=== PATIENT | female | born 1955 | race African-American/Black ===

== ENCOUNTER 2016-08-14 09:18 | Emergency (ER) | payer MEDICARE ==
--- NOTE | 2016-08-14 10:20 | ERRECORD ---
[facility] EMERGENCY RECORD HPI HYPERTENSION (10:08 LHOD) CHIEF COMPLAINT: Patient presents for evaluation of high blood pressure. HISTORIAN: History provided by patient. TIME COURSE: APPROX. 0900, PT CHECKED HER BP. 180/150, ALTHOUGH SHE TOLD RN IT WAS UP TO 200. PT TOOK HER BP MED THEN AND CAME TO HOSPITAL. SHE REPORTS SHE WAS CONCERNED SINCE SHE GETS TINGLING IN HER LEFT HAND. REPORTS SHE HAD CARDIAC WORK-UP APPROX. 2 MONTHS AGO AND TOLD TINGLING IN HAND FROM ARTHRITIS OR PINCHED NERVE. AT THAT TIME PT'S LISINOPRIL INCREASED TO 40 MG / DAY. NO SORIA OR CP. ASSOCIATED WITH: No associated abdominal pain, Associated with apprehension, No associated chest pain, No associated diarrhea, No associated flank pain, No associated headache, No associated malaise, No associated nausea, No associated neck pain, No associated palpitations, No associated profuse sweating, No associated steroid use, No associated tachycardia, No associated visual changes, No associated vomiting. EXACERBATED BY: Patient's condition exacerbated by nothing. RELIEVED BY: Patient's condition relieved by prescription medications, ANTI-HYPERTENSIVE MED DECREASED BP. ROS (10:10 LHOD) CONSTITUTIONAL: Historian denies fever, denies weakness. EYES: Negative eye review of systems. CARDIOVASCULAR: Historian denies chest pain, denies edema. RESPIRATORY: Historian denies cough, denies shortness of breath. GI: Historian denies abdominal pain, denies nausea, denies vomiting. MUSCULOSKELETAL: Historian denies back pain, OCCAS LEFT SHOULDER PAINS. SKIN: Historian denies rash. NEUROLOGIC: Historian denies focal weakness, denies headache, reports paresthesias. LEFT FINGER TINGLING. HEMO/LYMPHATIC: Historian denies easy bruising. PSYCHIATRIC: Historian reports anxiety. NOTES: All systems reviewed, negative except as described above. PAST MEDICAL HISTORY MEDICAL HISTORY: Flu vaccine up to date, Tetanus immunization up to date, Pneumococcal vaccine up to date, Past medical history includes gastrointestinal disease, gastroesophageal reflux disease, Past medical history includes history of hyperlipidemia, Past medical history includes history of hypertension, which has been treated, , Past medical history includes gastrointestinal disease, gastroesophageal reflux disease, Past medical history includes history of obesity, hypertension, which has been treated, malignancy, primary site breast, Date of last treatment: 2008. VERIFIED 09/25/14-EER.08-01-15. (09:34 SCHI) FEMALE SURGICAL HISTORY: , hysterectomy, Date of surgery 1979, mastectomy, of the left breast, orthopedic surgery, LEFT ANKLE. 08-01-15. (09:34 SCHI) &a-1R&a+25V*p+0X*[id number]*c202B*c15G*c2P*p-0X&a-25V&a+1R Name: Laly Beth V : 1955 F60 MedRec: [id number] AcctNum: [id number] Prepared: Sat Aug 14, 2016 10:18 by Interface Page 1 of 3 pMD [facility] EMERGENCY RECORD SOCIAL HISTORY: Patient denies alcohol use, Patient denies drug use, Patient has no smoking history, Patient drinks socially, rarely, Patient denies drug use, Patient has no smoking history, Lives at home, Patient denies alcohol use, Patient denies drug use, Patient has no smoking history, Lives at home, with family, Patient has pets, Social History includes Patient has no smoking history, Patient drinks socially, rarely, Patient denies drug use. (09:34 SCHI) FAMILY HISTORY: Family history includes malignancy, sibling, MOM'S AUNT. (09:34 SCHI) NOTES: Nursing records reviewed, HX OF BREAST CANCER FOR WHICH SHE GOES TO [facility], BUT NOT PRESENTLY RECEIVING CHEMO. (10:13 LHOD) KNOWN ALLERGIES adhesive tape: Reaction: Rash, Source: Patient, - PAPPER Levaquin Oral: Reaction: Hives, Source: Patient CURRENT MEDICATIONS (09:33 SCHI) hydrochlorothiazide: TABLET : Strength - 25 mg : ORAL Patient Dose: 1 tab(s) Oral once a day. lisinopril: TABLET : Strength - 10 mg : ORAL Patient Dose: 40 mg Oral once a day. pravastatin: TABLET : Strength - 20 mg : ORAL Patient Dose: 1 tab(s) once a day (at bedtime). meTOPROLOL tartrate: TABLET : Strength - 25 mg : ORAL Patient Dose: 1 tab(s) Oral 2 times a day. VITAL SIGNS VITAL SIGNS: BP: 175/73, Pulse: 76, Resp: 18, Temp: 98.6 (Tympanic), O2 sat: 95 on Room Air, Time: 08/14/2016 09:27. (09:27 SCHI) BP: 156/86, Time: 08/14/2016 09:57. (09:57 SCHI) PHYSICAL EXAM (10:12 LHOD) CONSTITUTIONAL: Vital signs reviewed, Patient afebrile, Pulse normal, Blood pressure, hypertensive, 156/86, Respiratory rate normal, Patient appears non toxic, Patient appears pain free, Patient alert and oriented to person, place and time, VERY PLEASANT, BUT ANXIOUS APPEARING. NECK: Neck exam included findings of normal range of motion, Trachea midline. RESPIRATORY CHEST: Respiratory exam included findings of no respiratory distress, Breath sounds clear. CARDIOVASCULAR: Cardiovascular exam included findings of heart rate regular rate and rhythm, Heart sounds with, &a-1R&a+25V*p+0X*c9563F*c202B*c15G*c2P*p-0X&a-25V&a+1R Name: Laly Beth V : 1955 F60 MedRec: [id number] AcctNum: [id number] Prepared: Sat Aug 14, 2016 10:18 by Interface Page 2 of 3 pMD [facility] EMERGENCY RECORD systolic murmur present, grade 2/6. ABDOMEN FEMALE: Abdominal exam included findings of abdomen nontender. BACK: Back exam normal. UPPER EXTREMITY: Upper extremity exam normal. LOWER EXTREMITY: Lower extremity exam normal. NEURO: Neuro exam findings include patient oriented to person, place and time, Speech normal, Gait normal, Memory normal, Cranial nerves intact, no focal motor deficits, no focal sensory deficits. SKIN: no rash. DOCTOR NOTES (10:14 LHOD) TEXT: REPEAT BP'S HERE SYSTOLIC UNDER 180. LAST 156/86 NO EVIDENCE OF CARDIOVASCULAR OR NEUROLOGIC COMPLICATIONS AT PRESENT. PROBLEM LIST No recorded problems DIAGNOSIS (09:49 LHOD) FINAL: PRIMARY: LABILE HYPERTENSION. PRESCRIPTION No recorded prescriptions DISPOSITION PATIENT: Disposition Type: Discharge, Disposition: *Discharge Home, Condition: Good. (09:49 LHOD) Patient left the department. (10:13 [facility] [place]: LHOD=MD Karen, Karina [facility]=SOMMER Powers, Davonte &a-1R&a+25V*p+0X*p3524H*c202B*c15G*c2P*p-0X&a-25V&a+1R Name: Laly Beth V : 1955 F60 MedRec: [id number] AcctNum: [id number] Prepared: Calixto Aug 14, 2016 10:18 by Interface Page 3 of 3 pMD MTDD
--- NOTE | 2016-08-14 10:26 | PICIS ---
[facility] EMERGENCY RECORD TRIAGE [facility] SCHI[facility] TRIAGE NOTES: BP ELEVATED. (Sat Aug 14, 2016 09:33 SCHI) PATIENT: NAME: Laly Beth V, AGE: 60, GENDER: female, : Tue1955, TIME OF GREET: Sat Aug 14, 2016 09:18, PREFERRED LANGUAGE: Tamazight, ETHNICITY: Not or , FALL RISK: NO, ECODE BILLING MAP: [facility], SSN: [id number], Zip Code: [id number], KG WEIGHT: [phone], PHONE: , , , PERSON ID: [id number], PCP: MD MARTINEZ IMELDA. (Sat Aug 14, 2016 09:33 SCHI) COMPLAINT: HIGH BP. ([facility] 09:[facility] SCHI) ADMISSION: URGENCY: 3 Urgent, ADMISSION SOURCE: Home, TRANSPORT: Walk-in, BED: ED -. (Sat Aug 14, 2016 09:33 SCHI) ASSESSMENT: Assessment: ALERT AND ORIENTED X 4, SKIN WARM AND DRY RESP EVEN AND UNLABORED,. (09:34 SCHI) PAIN: No complaint of pain, Location CHRONIC LEFT ARM PAIN. (09:34 SCHI) TRIAGE SCREENING: Patient denies suicidal ideation, Patient denies presence of domestic violence. (09:34 SCHI) PROVIDERS: TRIAGE NURSE: Davonte Powers RN. ([facility] 09:[facility] SCHI) VITAL SIGNS: BP 175/73, Pulse 76, Resp 18, Temp 98.6, (Tympanic), O2 Sat 95, on Room Air, Time 08/14/2016 09:27. (09:27 SCHI) PREVIOUS VISIT ALLERGIES: adhesive tape, Levaquin Oral. (Sat Aug 14, 2016 09:33 SCHI) adhesive tape, Levaquin Oral. (09:34 SCHI) KNOWN ALLERGIES adhesive tape: Reaction: Rash, Source: Patient, - PAPPER Levaquin Oral: Reaction: Hives, Source: Patient CURRENT MEDICATIONS (09:33 SCHI) hydrochlorothiazide: TABLET : Strength - 25 mg : ORAL Patient Dose: 1 tab(s) Oral once a day. lisinopril: TABLET : Strength - 10 mg : ORAL Patient Dose: 40 mg Oral once a day. pravastatin: TABLET : Strength - 20 mg : ORAL Patient Dose: 1 tab(s) once a day (at bedtime). meTOPROLOL tartrate: TABLET : Strength - 25 mg : ORAL Patient Dose: 1 tab(s) Oral 2 times a day. VITAL SIGNS VITAL SIGNS: BP: 175/73, Pulse: 76, Resp: 18, Temp: 98.6 (Tympanic), O2 sat: 95 on Room Air, Time: 08/14/2016 09:27. (09:27 SCHI) BP: 156/86, Time: 08/14/2016 09:57. (09:57 SCHI) &a-1R&a+25V*p+0X*f9391K*c202B*c15G*c2P*p-0X&a-25V&a+1R Name: Laly Beth V : 1955 F60 MedRec: [id number] AcctNum: [id number] Prepared: Sat Aug 14, 2016 10:24 by Interface Page 1 of 4 pMD [facility] EMERGENCY RECORD HPI HYPERTENSION (10:08 LHOD) CHIEF COMPLAINT: Patient presents for evaluation of high blood pressure. HISTORIAN: History provided by patient. TIME COURSE: APPROX. 0900, PT CHECKED HER BP. 180/150, ALTHOUGH SHE TOLD RN IT WAS UP TO 200. PT TOOK HER BP MED THEN AND CAME TO HOSPITAL. SHE REPORTS SHE WAS CONCERNED SINCE SHE GETS TINGLING IN HER LEFT HAND. REPORTS SHE HAD CARDIAC WORK-UP APPROX. 2 MONTHS AGO AND TOLD TINGLING IN HAND FROM ARTHRITIS OR PINCHED NERVE. AT THAT TIME PT'S LISINOPRIL INCREASED TO 40 MG / DAY. NO SORIA OR CP. ASSOCIATED WITH: No associated abdominal pain, Associated with apprehension, No associated chest pain, No associated diarrhea, No associated flank pain, No associated headache, No associated malaise, No associated nausea, No associated neck pain, No associated palpitations, No associated profuse sweating, No associated steroid use, No associated tachycardia, No associated visual changes, No associated vomiting. EXACERBATED BY: Patient's condition exacerbated by nothing. RELIEVED BY: Patient's condition relieved by prescription medications, ANTI-HYPERTENSIVE MED DECREASED BP. ROS (10:10 LHOD) CONSTITUTIONAL: Historian denies fever, denies weakness. EYES: Negative eye review of systems. CARDIOVASCULAR: Historian denies chest pain, denies edema. RESPIRATORY: Historian denies cough, denies shortness of breath. GI: Historian denies abdominal pain, denies nausea, denies vomiting. MUSCULOSKELETAL: Historian denies back pain, OCCAS LEFT SHOULDER PAINS. SKIN: Historian denies rash. NEUROLOGIC: Historian denies focal weakness, denies headache, reports paresthesias. LEFT FINGER TINGLING. HEMO/LYMPHATIC: Historian denies easy bruising. PSYCHIATRIC: Historian reports anxiety. NOTES: All systems reviewed, negative except as described above. PAST MEDICAL HISTORY MEDICAL HISTORY: Flu vaccine up to date, Tetanus immunization up to date, Pneumococcal vaccine up to date, Past medical history includes gastrointestinal disease, gastroesophageal reflux disease, Past medical history includes history of hyperlipidemia, Past medical history includes history of hypertension, which has been treated, , Past medical history includes gastrointestinal disease, gastroesophageal reflux disease, Past medical history includes history of obesity, hypertension, which has been treated, malignancy, primary site breast, Date of last treatment: 2008. VERIFIED 09/25/14-EER.08-01-15. (09:34 SCHI) FEMALE SURGICAL HISTORY: , hysterectomy, Date of surgery 1979, mastectomy, of the left breast, orthopedic surgery, LEFT ANKLE. &a-1R&a+25V*p+0X*m7730S*c202B*c15G*c2P*p-0X&a-25V&a+1R Name: Laly Beth V : 1955 F60 MedRec: [id number] AcctNum: [id number] Prepared: Calixto Aug 14, 2016 10:24 by Interface Page 2 of 4 pMD [facility] EMERGENCY RECORD 08-01-15. (09:34 SCHI) SOCIAL HISTORY: Patient denies alcohol use, Patient denies drug use, Patient has no smoking history, Patient drinks socially, rarely, Patient denies drug use, Patient has no smoking history, Lives at home, Patient denies alcohol use, Patient denies drug use, Patient has no smoking history, Lives at home, with family, Patient has pets, Social History includes Patient has no smoking history, Patient drinks socially, rarely, Patient denies drug use. (09:34 SCHI) FAMILY HISTORY: Family history includes malignancy, sibling, MOM'S AUNT. (09:34 SCHI) NOTES: Nursing records reviewed, HX OF BREAST CANCER FOR WHICH SHE GOES TO [facility], BUT NOT PRESENTLY RECEIVING CHEMO. (10:13 LHOD) PHYSICAL EXAM (10:12 LHOD) CONSTITUTIONAL: Vital signs reviewed, Patient afebrile, Pulse normal, Blood pressure, hypertensive, 156/86, Respiratory rate normal, Patient appears non toxic, Patient appears pain free, Patient alert and oriented to person, place and time, VERY PLEASANT, BUT ANXIOUS APPEARING. NECK: Neck exam included findings of normal range of motion, Trachea midline. RESPIRATORY CHEST: Respiratory exam included findings of no respiratory distress, Breath sounds clear. CARDIOVASCULAR: Cardiovascular exam included findings of heart rate regular rate and rhythm, Heart sounds with, systolic murmur present, grade 2/6. ABDOMEN FEMALE: Abdominal exam included findings of abdomen nontender. BACK: Back exam normal. UPPER EXTREMITY: Upper extremity exam normal. LOWER EXTREMITY: Lower extremity exam normal. NEURO: Neuro exam findings include patient oriented to person, place and time, Speech normal, Gait normal, Memory normal, Cranial nerves intact, no focal motor deficits, no focal sensory deficits. SKIN: no rash. EVENTS TRANSFER: Triage to Emergency Main ED -05. (09:33 SCHI) Removed from Emergency Main ED -05. (10:13 SCHI) DOCTOR NOTES (10:14 LHOD) TEXT: REPEAT BP'S HERE SYSTOLIC UNDER 180. LAST 156/86 NO EVIDENCE OF CARDIOVASCULAR OR NEUROLOGIC COMPLICATIONS AT PRESENT. PROBLEM LIST No recorded problems &a-1R&a+25V*p+0X*h1193A*c202B*c15G*c2P*p-0X&a-25V&a+1R Name: Laly Beth V : 1955 F60 MedRec: [id number] AcctNum: [id number] Prepared: Calixto Aug 14, 2016 10:24 by Interface Page 3 of 4 pMD [facility] EMERGENCY RECORD DIAGNOSIS (09:49 LHOD) FINAL: PRIMARY: LABILE HYPERTENSION. DISPOSITION PATIENT: Disposition Type: Discharge, Disposition: *Discharge Home, Condition: Good. (09:49 LHOD) Patient left the department. (10:13 SCHI) INSTRUCTION (09:50 LHOD) DISCHARGE: HYPERTENSION, ESTABLISHED. FOLLOWUP: MD JUAN, [facility], [facility], [address] [place] [id number], [phone], Follow up with Primary Care Physician in 7-10 days. SPECIAL: CONTINUE YOUR PRESENT MEDICATION. FOLLOW UP WITH THE DOCTOR WHO TREATS YOUR BLOOD PRESSURE IN THE NEXT 1-2 WEEKS. *RETURN IF WORSE Follow-up with your PCP. PRESCRIPTION No recorded prescriptions ADMIN (10:15 LHOD) DIGITAL SIGNATURE: MD Jones Lefayne. [place]: LHOD=MD Jones Lefayne SCHI=SOMMER Powers, Slinda &a-1R&a+25V*p+0X*e0174G*c202B*c15G*c2P*p-0X&a-25V&a+1R Name: Laly Beth V : 1955 F60 MedRec: [id number] AcctNum: [id number] Prepared: Calixto Aug 14, 2016 10:24 by Interface Page 4 of 4 pMD MTDD
== END 2016-08-14 10:12 | disposition home or self-care (01) ==
LOC: MADERS 09:18
DX: I10 Essential (primary) hypertension (principal); K21.9 Gastro-esophageal reflux disease without esophagitis; R78.5 Finding of other psychotropic drug in blood; Z79.899 Other long term (current) drug therapy
CPT/HCPCS: 99283

== ENCOUNTER 2016-08-17 08:03 | Outpatient (CLI) | payer MEDICARE ==
[2016-08-17 08:51] LABS: ALT (SGPT) 17 U/L (0-55); AST (SGOT) 16 U/L (5-34); Albumin 3.7 g/dL (3.4-4.8); Alkaline Phosphatase 75 U/L (40-150); Anion Gap 15 mmol/L (10-20); BUN (Urea Nitrogen) 11 mg/dL (9.8-20.1); Bilirubin, Total 0.5 mg/dL (0.2-1.2); Calc. Creatinine Clearance 0 mL/min (70-130); Calcium 9.2 mg/dL (7.8-10.44); Carbon Dioxide 27 mmol/L (23-31); Chloride 102 mmol/L (98-107); Estimated GFR-MDRD Greater than 90; Globulin 3.7 g/dL (2.4-3.5); Glucose 100 mg/dL (80-115); Potassium 4.4 mmol/L (3.5-5.1); Protein, Total 7.4 g/dL (5.8-8.1); Sodium 140 mmol/L (136-145)
[2016-08-17 09:08] LABS: Free T4 (Free Thyroxine) 0.92 ng/dL (0.70-1.48); Thyroid Stimulating Hormone 2.3254 uIU/mL (0.35-4.94)
[2016-08-17 09:25] LABS: Anisocytosis SLIGHT = 6-15 cells (100X) (0-5/hpf); Elliptocytes SLIGHT = 2-5 cells (100X) (0-1/hpf); Eosinophils 4 % (0-10); Hemoglobin 11.7 g/dL (12.0-16.0); Hypochromia SLIGHT = 6-15 cells (100X) (0-5/hpf); Lymphocytes 28 % (21-51); MDiff Complete? YES; Mean Corpuscular HGB CONC 31.2 g/dL (32.0-36.0); Mean Corpuscular Hemoglobin 22.4 pg (27.0-31.0); Mean Corpuscular Volume 71.7 fl (81.0-99.0); Mean Platelet Volume 12.1 fL (7.4-10.4); Microcytosis SLIGHT = 6-15 cells (100X) (0-5/hpf); Monocytes 5 % (0-10); Neutrophil 63 % (42-75); Platelet Count 217 thou/uL (130-400); Poikilocytosis SLIGHT = 6-15 cells (100X) (0-5/hpf); RBC Distribution Width 16.1 % (11.5-14.5); Red Blood Cell (RBC) Count 5.23 mill/uL (4.20-5.40); White Blood Cell (WBC) Count 8.7 thou/uL (4.8-10.8)
[2016-08-17 09:47] LABS: Hemoglobin A1c 6.3 % (4.0-6.0)
[2016-08-17 18:32] LABS: Iron 47 ug/dL (50-170)
[2016-08-17 18:39] LABS: Ferritin 39.32 ng/mL (10-291)
== END 2016-08-17 08:04 ==
LOC: MADLABBHPM 08:03
PROVIDERS: ATTEND Family Medicine
DX: E78.2 Mixed hyperlipidemia (principal); D50.9 Iron deficiency anemia, unspecified; I10 Essential (primary) hypertension
CPT/HCPCS: 36415; 80053; 82728; 83036; 83540; 84439; 84443; 85007; 85027

== ENCOUNTER 2016-10-21 07:57 | Outpatient (CLI) | payer MEDICARE ==
[2016-10-21 08:32] LABS: Hemoglobin A1c 6.4 % (4.0-6.0)
[2016-10-21 08:37] LABS: ALT (SGPT) 15 U/L (0-55); AST (SGOT) 14 U/L (5-34); Albumin 3.6 g/dL (3.4-4.8); Alkaline Phosphatase 69 U/L (40-150); Anion Gap 14 mmol/L (10-20); BUN (Urea Nitrogen) 10 mg/dL (9.8-20.1); Bilirubin, Total 0.3 mg/dL (0.2-1.2); Calc. Creatinine Clearance 0 mL/min (70-130); Calcium 9.2 mg/dL (7.8-10.44); Carbon Dioxide 28 mmol/L (23-31); Cardiac Risk 4.2 (Less than 4.5); Chloride 102 mmol/L (98-107); Cholesterol 171 mg/dL (< 200 Desired); Estimated GFR-MDRD 88; Globulin 3.5 g/dL (2.4-3.5); Glucose 105 mg/dL (80-115); HDL Cholesterol 41 mg/dL (>60 Neg Risk); LDL Cholesterol, Calculated 113 mg/dL; Protein, Total 7.1 g/dL (5.8-8.1); Sodium 140 mmol/L (136-145); Triglycerides 85 mg/dL (Less than 150)
[2016-10-21 09:50] LABS: #Basophils 0.2 thou/uL (0.0-0.2); #Eosinphils 0.4 thou/uL (0.0-0.7); #Lymphocytes 2.3 thou/uL (1.20-3.40); #Monocytes 0.6 thou/uL (0.11-0.59); #Neutrophils 4.3 thou/uL (1.40-6.50); %Basophils 2.1 % (0.0-1.0); %Eosinophils 4.5 % (0.0-10.0); %Monocytes 7.9 % (0.0-10.0); %Neutrophils 55.4 % (42.0-75.0); Hemoglobin 12.3 g/dL (12.0-16.0); Large Platelets SLIGHT; MDiff Complete? YES; Mean Corpuscular HGB CONC 30.9 g/dL (32.0-36.0); Mean Corpuscular Hemoglobin 22.4 pg (27.0-31.0); Mean Corpuscular Volume 72.6 fl (81.0-99.0); Mean Platelet Volume 13.8 fL (7.4-10.4); Microcytosis SLIGHT = 6-15 cells (100X) (0-5/hpf); PLT Morphology Comment Appears Adequate; Platelet Count 221 thou/uL (130-400); RBC Distribution Width 16.1 % (11.5-14.5); Red Blood Cell (RBC) Count 5.47 mill/uL (4.20-5.40); White Blood Cell (WBC) Count 7.8 thou/uL (4.8-10.8)
[2016-10-21 17:37] LABS: Iron 38 ug/dL (50-170)
== END 2016-10-21 07:58 ==
LOC: MADLABBHPM 07:57
PROVIDERS: ATTEND Family Medicine
DX: E78.5 Hyperlipidemia, unspecified (principal); D50.9 Iron deficiency anemia, unspecified; R73.03 Prediabetes
CPT/HCPCS: 36415; 80053; 80061; 82728; 83036; 83540; 85025

== ENCOUNTER 2016-10-27 10:51 | Emergency (ER) | payer MEDICARE | END 2016-10-27 11:23 | disposition home or self-care (01) | LOC: MADERS 10:51 | DX: H69.91 Unspecified Eustachian tube disorder, right ear (principal); I10 Essential (primary) hypertension; K21.9 Gastro-esophageal reflux disease without esophagitis; E78.5 Hyperlipidemia, unspecified; Z79.899 Other long term (current) drug therapy | CPT/HCPCS: 99283 ==

== ENCOUNTER 2017-02-10 17:39 | Outpatient (CLI) | payer MEDICARE | END 2017-02-10 17:40 | disposition home or self-care (01) | LOC: MADLAB 17:39 | PROVIDERS: ATTEND Family Medicine | DX: R39.9 Unspecified symptoms and signs involving the genitourinary system (principal) | CPT/HCPCS: 87086 ==

== ENCOUNTER 2017-02-27 04:31 | Emergency (ER) | payer MEDICARE | END 2017-02-27 05:48 | disposition home or self-care (01) | LOC: MADERS 04:31 | DX: J01.90 Acute sinusitis, unspecified (principal); E66.9 Obesity, unspecified; K21.9 Gastro-esophageal reflux disease without esophagitis; E78.5 Hyperlipidemia, unspecified; I10 Essential (primary) hypertension; Z79.899 Other long term (current) drug therapy | CPT/HCPCS: 99283 ==

== ENCOUNTER 2017-03-14 15:46 | Emergency (ER) | payer MEDICARE ==
[2017-03-14] MEDS ORDERED: Azithromycin 250 MG TAB ONE (17:55)
[2017-03-14] MEDS ORDERED: Naproxen 500 MG TAB ONE (17:55)
[2017-03-14] MEDS ORDERED: Cephalexin 500 MG CAP ONE (17:55)
== END 2017-03-14 18:05 | disposition home or self-care (01) ==
LOC: MADERS 15:46
DX: S80.862A Insect bite (nonvenomous), left lower leg, initial encounter (principal); L08.9 Local infection of the skin and subcutaneous tissue, unspecified; E78.5 Hyperlipidemia, unspecified; I10 Essential (primary) hypertension; K21.9 Gastro-esophageal reflux disease without esophagitis; E66.9 Obesity, unspecified; W57.XXXA Bitten or stung by nonvenomous insect and other nonvenomous arthropods, initial encounter
CPT/HCPCS: 99282

== ENCOUNTER 2017-03-30 09:43 | Outpatient (CLI) | payer MEDICARE ==
[2017-03-30 11:26] LABS: Hemoglobin A1c 6.4 % (4.0-6.0)
[2017-03-30 11:47] LABS: ALT (SGPT) 17 U/L (8-55); AST (SGOT) 14 U/L (5-34); Albumin 3.7 g/dL (3.4-4.8); Alkaline Phosphatase 71 U/L (40-150); Anion Gap 12 mmol/L (10-20); BUN (Urea Nitrogen) 9 mg/dL (9.8-20.1); Bilirubin, Total 0.6 mg/dL (0.2-1.2); Calc. Creatinine Clearance 0 mL/min (70-130); Calcium 9.4 mg/dL (7.8-10.44); Carbon Dioxide 29 mmol/L (23-31); Chloride 102 mmol/L (98-107); Estimated GFR-MDRD Greater than 90; Globulin 4.3 g/dL (2.4-3.5); Glucose 94 mg/dL (80-115); Potassium 3.8 mmol/L (3.5-5.1); Sodium 139 mmol/L (136-145)
[2017-03-30 12:51] LABS: #Basophils 0.1 thou/uL (0.0-0.2); #Eosinphils 0.3 thou/uL (0.0-0.7); #Lymphocytes 2.3 thou/uL (1.20-3.40); #Monocytes 0.6 thou/uL (0.11-0.59); #Neutrophils 5.5 thou/uL (1.40-6.50); %Basophils 1.1 % (0.0-1.0); %Eosinophils 3.4 % (0.0-10.0); %Lymphocytes 26.1 % (21.0-51.0); %Monocytes 6.9 % (0.0-10.0); %Neutrophils 62.7 % (42.0-75.0); Hemoglobin 11.9 g/dL (12.0-16.0); Mean Corpuscular HGB CONC 29.7 g/dL (32.0-36.0); Mean Corpuscular Hemoglobin 21.2 pg (27.0-31.0); Mean Corpuscular Volume 71.5 fl (81.0-99.0); Platelet Count 235 thou/uL (130-400); RBC Distribution Width 17.7 % (11.5-14.5); Red Blood Cell (RBC) Count 5.58 mill/uL (4.20-5.40); White Blood Cell (WBC) Count 8.7 thou/uL (4.8-10.8)
[2017-03-30 13:15] LABS: Giant Platelets SLIGHT; Large Platelets SLIGHT; Manual Diff?? NO; Microcytosis SLIGHT = 6-15 cells (100X) (0-5/hpf); PLT Morphology Comment Appears Adequate
== END 2017-03-30 09:44 | disposition home or self-care (01) ==
LOC: MADLABBHPM 09:43
PROVIDERS: ATTEND Family Medicine
DX: E61.1 Iron deficiency (principal); R73.03 Prediabetes
CPT/HCPCS: 36415; 80053; 82728; 83036; 83540; 85025

== ENCOUNTER 2017-12-09 10:49 | Outpatient (CLI) | payer MEDICARE | END 2017-12-09 10:50 | disposition home or self-care (01) | LOC: MADLABBHPM 10:49 | PROVIDERS: ATTEND Family Medicine | DX: Z01.83 Encounter for blood typing (principal) | CPT/HCPCS: 36415; 86900; 86901 ==

== ENCOUNTER 2018-03-16 22:25 | Emergency (ER) | payer MEDICARE ==
[2018-03-16 22:47] LABS: Bilirubin Small (Negative); Blood, Urine Negative (Negative); Clarity Clear (Clear); Glucose, Urine (Dipstick) Negative (Negative); Leukocyte Negative (Negative); Nitrite Negative (Negative); Protein, Urine (Dipstick) 30 mg/dL (Neg-Trace); Specific Gravity, Urine 1.025 (1.005-1.030); pH, Urine 6.5 (5.0-9.0)
[2018-03-16] MEDS ORDERED: Ketorolac Tromethamine 30 MG/ML VIAL ONE (22:52)
[2018-03-16] MEDS ORDERED: Ondansetron HCl/PF 4 MG/2 ML Vial ONE (22:52)
[2018-03-16 22:53] LABS: Bacteria/HPF None Seen HPF (None Seen); RBC/HPF 0-3 HPF (0-3); Squamous Epithelial 0-3 HPF (0-3); WBC/HPF 0-3 HPF (0-3)
--- NOTE | 2018-03-16 23:14 | CT ---
CT ABDOMEN AND PELVIS NONCONTRAST: 03/16/18 HISTORY: Left flank pain. FINDINGS: Each renal collecting system, ureter, and the urinary bladder are decompressed without stone evident. Lack of contrast limited evaluation for other abnormalities. Calcified granulomata of the spleen are consistent with healed granulomatous disease. Postoperative changes of the rectum. Degenerative crandall es lumbar spine. IMPRESSION: No CT evidence of urinary tract obstruction or calcification. POS: [facility]
[2018-03-16 23:22] LABS: Hemoglobin 11.5 g/dL (12.0-16.0); Mean Corpuscular HGB CONC 30.3 g/dL (32.0-36.0); Mean Corpuscular Hemoglobin 20.7 pg (27.0-31.0); Mean Corpuscular Volume 68.6 fL (78.0-98.0); Platelet Count 200 thou/uL (130-400); RBC Distribution Width 17.7 % (11.5-14.5); Red Blood Cell (RBC) Count 5.54 mill/uL (4.20-5.40); White Blood Cell (WBC) Count 10.5 thou/uL (4.8-10.8)
[2018-03-16 23:23] LABS: #Lymphocytes 0.6 thou/uL (1.20-3.40); #Neutrophils 8.7 thou/uL (1.40-6.50); %Eosinophils 0.2 % (0.0-10.0); %Lymphocytes 5.7 % (21.0-51.0); %Monocytes 4.3 % (0.0-10.0); %Neutrophils 83.2 % (42.0-75.0); Mean Platelet Volume 12.7 fL (7.4-10.4)
[2018-03-16 23:24] LABS: #Basophils 0.7 thou/uL (0.0-0.2); #Monocytes 0.5 thou/uL (0.11-0.59); %Basophils 6.6 % (0.0-1.0); ALT (SGPT) 18 U/L (8-55); AST (SGOT) 17 U/L (5-34); Albumin 4.3 g/dL (3.4-4.8); Alkaline Phosphatase 86 U/L (40-150); Anion Gap 18 mmol/L (10-20); BUN (Urea Nitrogen) 10 mg/dL (9.8-20.1); Bilirubin, Total 0.5 mg/dL (0.2-1.2); Calc. Creatinine Clearance 0 mL/min (70-130); Calcium 9.8 mg/dL (7.8-10.44); Carbon Dioxide 25 mmol/L (23-31); Chloride 100 mmol/L (98-107); Estimated GFR-MDRD 80; Globulin 3.9 g/dL (2.4-3.5); Glucose 178 mg/dL (80-115); Lipase 10 U/L (8-78); Protein, Total 8.2 g/dL (6.0-8.3); Sodium 139 mmol/L (136-145)
[2018-03-16 23:32] LABS: MDiff Complete? YES; Manual Diff?? YES
[2018-03-16 23:33] LABS: Anisocytosis SLIGHT = 6-15 cells (100X) (0-5/hpf); Hypochromia SLIGHT = 6-15 cells (100X) (0-5/hpf); Large Platelets SLIGHT; Lymphocytes 14 % (21-51); Monocytes 1 % (0-10); Neutrophil 85 % (42-75); Poikilocytosis SLIGHT = 6-15 cells (100X) (0-5/hpf)
[2018-03-16 23:34] LABS: PLT Morphology Comment Appears Adequate; RBC Morphology Abnormal
[2018-03-16] MEDS ORDERED: Promethazine HCl 25 MG/ML VIAL ONE (23:52)
== END 2018-03-17 00:18 | disposition home or self-care (01) ==
LOC: MADERS 22:25
DX: R10.9 Unspecified abdominal pain (principal); R11.2 Nausea with vomiting, unspecified; K21.9 Gastro-esophageal reflux disease without esophagitis; E78.5 Hyperlipidemia, unspecified; I10 Essential (primary) hypertension; E66.9 Obesity, unspecified; Z79.899 Other long term (current) drug therapy
CPT/HCPCS: 74176; 81003; 81015; 83690; 87086; 96365; 96375; J1885; J2405; J2550

== ENCOUNTER 2018-09-28 10:54 | Emergency (ER) | payer MEDICARE ==
--- NOTE | 2018-09-28 12:23 | CT ---
CT BRAIN WITHOUT CONTRAST: Date: 09/28/18 HISTORY: Vertigo. Dizziness. FINDINGS: No evidence of acute infarct, hemorrhage, midline shift, or abnormal extra-axial fluid collections ar e seen. The ventricular size is normal and the basilar cisterns are patent. The bony calvarium is int act. The visualized paranasal sinuses and mastoid air cells are well aerated. IMPRESSION: No CT evidence of acute intracranial process. POS: [facility]
[2018-09-28 12:30] LABS: Prothrombin Time 13.7 SEC (12.0-14.7)
[2018-09-28] MEDS ORDERED: Meclizine HCl 25 MG TAB ONE (12:34)
[2018-09-28 12:41] LABS: ALT (SGPT) 16 U/L (8-55); AST (SGOT) 23 U/L (5-34); Albumin 4.1 g/dL (3.4-4.8); Alkaline Phosphatase 79 U/L (40-150); Anion Gap 18 mmol/L (10-20); BUN (Urea Nitrogen) 11 mg/dL (9.8-20.1); Bilirubin, Total 0.4 mg/dL (0.2-1.2); Calc. Creatinine Clearance 0 mL/min (70-130); Calcium 9.3 mg/dL (7.8-10.44); Carbon Dioxide 23 mmol/L (23-31); Chloride 105 mmol/L (98-107); Estimated GFR-MDRD Greater than 90; Globulin 4.1 g/dL (2.4-3.5); Glucose 88 mg/dL (80-115); Potassium 4.8 mmol/L (3.5-5.1); Protein, Total 8.2 g/dL (6.0-8.3); Sodium 141 mmol/L (136-145)
[2018-09-28 12:44] LABS: Hemoglobin 11.8 g/dL (12.0-16.0); Mean Corpuscular HGB CONC 29.6 g/dL (32.0-36.0); Mean Corpuscular Hemoglobin 21.1 pg (27.0-31.0); Mean Corpuscular Volume 71.3 fL (78.0-98.0); Mean Platelet Volume 13.3 fL (7.4-10.4); Platelet Count 229 thou/uL (130-400); RBC Distribution Width 17.1 % (11.5-14.5); Red Blood Cell (RBC) Count 5.62 mill/uL (4.20-5.40); White Blood Cell (WBC) Count 6.5 thou/uL (4.8-10.8)
[2018-09-28 12:53] LABS: Anisocytosis SLIGHT = 6-15 cells (100X) (0-5/hpf); Band 1 % (5-11); Lymphocytes 32 % (21-51); MDiff Complete? YES; Microcytosis SLIGHT = 6-15 cells (100X) (0-5/hpf); Monocytes 6 % (0-10); Neutrophil 61 % (42-75); Platelet Morphology Comment Appears Adequate
[2018-09-28] MEDS ORDERED: Aspirin Chewable 81 MG TAB ONE (13:48)
== END 2018-09-28 13:56 | disposition short-term general hospital (02) ==
LOC: MADERS 10:54
DX: R42 Dizziness and giddiness (principal); K21.9 Gastro-esophageal reflux disease without esophagitis; E78.5 Hyperlipidemia, unspecified; E66.9 Obesity, unspecified; I10 Essential (primary) hypertension; Z79.899 Other long term (current) drug therapy
CPT/HCPCS: 70450; 80053; 85025; 85610; 85730; 93005

== ENCOUNTER 2019-05-30 14:22 | Emergency (ER) | payer MEDICARE ==
[~2019-05-30 14:22] MED LIST: Iopamidol 370 76% 150 ML VIAL FS ONE
[2019-05-30] MEDS ORDERED: Ondansetron ODT 4 MG TAB ONE (15:02)
[2019-05-30] MEDS ORDERED: Meclizine HCl 25 MG TAB ONE (15:02)
[2019-05-30 16:34] LABS: Anion Gap 10 mmol/L (10-20); BUN (Urea Nitrogen) 13 mg/dL (9.8-20.1); Calc. Creatinine Clearance 0 mL/min (70-130); Calcium 9.2 mg/dL (7.8-10.44); Carbon Dioxide 30 mmol/L (23-31); Chloride 106 mmol/L (98-107); Estimated GFR-MDRD 86; Glucose 126 mg/dL (80-115); Sodium 142 mmol/L (136-145)
[2019-05-30 16:39] LABS: #Basophils 0.1 thou/uL (0.0-0.2); #Eosinphils 0.1 thou/uL (0.0-0.7); #Lymphocytes 1.7 thou/uL (1.20-3.40); #Monocytes 0.7 thou/uL (0.11-0.59); #Neutrophils 5.1 thou/uL (1.40-6.50); %Basophils 1.8 % (0.0-1.0); %Eosinophils 1.3 % (0.0-10.0); %Lymphocytes 21.9 % (21.0-51.0); %Monocytes 8.7 % (0.0-10.0); %Neutrophils 66.2 % (42.0-75.0); Giant Platelets SLIGHT; Hemoglobin 11.6 g/dL (12.0-16.0); Hypochromia SLIGHT = 6-15 cells (100X) (0-5/hpf); Large Platelets SLIGHT; MDiff Complete? YES; Mean Corpuscular HGB CONC 27.7 g/dL (32.0-36.0); Mean Corpuscular Hemoglobin 20.3 pg (27.0-31.0); Mean Corpuscular Volume 73.3 fL (78.0-98.0); Mean Platelet Volume 13.3 fL (7.4-10.4); Microcytosis SLIGHT = 6-15 cells (100X) (0-5/hpf); Platelet Count 236 thou/uL (130-400); Platelet Morphology Comment Appears Adequate; Polychromasia SLIGHT = 2-3 cells (100X) (0-2/hpf); RBC Distribution Width 16.5 % (11.5-14.5); Red Blood Cell (RBC) Count 5.74 mill/uL (4.20-5.40); White Blood Cell (WBC) Count 7.7 thou/uL (4.8-10.8)
--- NOTE | 2019-05-30 17:52 | RAD ---
FRONTAL RADIOGRAPH CHEST 05/30/19 COMPARISON: 02/13/16 HISTORY: Cough. FINDINGS: No pneumothorax is seen. There is no large volume pleural effusion evident. There is a suggestion of angulated increased density in the left hilar region. There is increased aura ear interstitial density. Cardiac silhouette is prominent. Evaluation is somewhat limited secondary t o portable technique and body habitus. IMPRESSION: There is increased density in the left perihilar region, etiology uncertain, not optimally characteri zed on portable frontal chest radiograph. Recommend PA and lateral imaging for further assessment. A denopathy or a parenchymal abnormality in the left hilar region is a possibility. Code T POS: [facility]
--- NOTE | 2019-05-30 17:58 | CT ---
CT head noncontrast HISTORY: Headache. Left mastoid pain. COMPARISON: 09/28/2018. FINDINGS: There is no evidence of acute intracranial hemorrhage or infarct. The ventricles appear nor mal in size, shape and position. There is no mass effect or shift of midline structures. Left mastoid air cells and other paranasal sinuses remain well-aerated. IMPRESSION: No acute intracranial abnormalities are demonstrated.
--- NOTE | 2019-05-30 18:30 | CT ---
CT arteriogram neck with IV contrast and 3-D imaging HISTORY: Neck pain. Pulsatile tinnitus left ear. FINDINGS: There is good contrast opacification of the aortic arch with normal branching great vessels . Minimal arterial calcification at the aortic arch and carotid bifurcations. Each remains widely patent. Good flow into each carotid and vertebral system. Left vertebral artery is very small. Nonspecific lymph nodes along each jugular chain. Within the deep lobe of the left parotid gland, a s moothly marginated 0.7 cm cystic lesion is noted and is of doubtful clinical significance. Middle ear cavities and mastoid air cells remain well aerated. No gross internal ear abnormalities are appar ent. IMPRESSION: No significant abnormalities are demonstrated. Minimal atherosclerosis.
--- NOTE | 2019-05-30 18:35 | RAD ---
FRONTAL AND LATERAL IMAGING OF THE CHEST: 05/30/19 COMPARISON: 05/30/19 and 02/12/16. HISTORY: Vertigo and left sided neck pain. FINDINGS: Cardiac silhouette appears enlarged. No pleural effusion appreciated on the lateral view. Heart and m ediastinal contours demonstrate prominence of the cardiac silhouette. The area of questionable abnorm ality in the left perihilar region seen on recent portable imaging does not persist. Mild pulmonary v ascular congestion with no pneumothorax, lobar consolidation or alveolar edema. IMPRESSION: Prominent cardiac silhouette with mild pulmonary vascular congestion. No focal consolidation or alveo lar edema. POS: G[facility]
== END 2019-05-30 18:54 | disposition home or self-care (01) ==
LOC: MADERS 14:22
DX: H83.02 Labyrinthitis, left ear (principal); I10 Essential (primary) hypertension; K21.9 Gastro-esophageal reflux disease without esophagitis; E78.5 Hyperlipidemia, unspecified; E66.9 Obesity, unspecified; Z79.899 Other long term (current) drug therapy
CPT/HCPCS: 36416; 70450; 70498; 71045; 71046; 80048; 85025; 93005; 36415-59; J8597; Q0162

== ENCOUNTER 2019-08-29 15:36 | Inpatient (IN) | payer MEDICARE, BC ==
[2019-08-29] MEDS: Ondansetron ODT 4 MG TAB SL PRN ×2 (20:35→20:40)
[2019-08-29] MEDS ORDERED: Diabetic Tussin 200 MG/10 ML UDCUP PER TUBE PRN (21:04)
[2019-08-29] MEDS: Pantoprazole 40 MG GRANULES PACKET PER TUBE SCH (21:40)
[2019-08-29] MEDS: Metoprolol Tartrate 25 MG TAB PER TUBE SCH (21:40)
[2019-08-29] MEDS: hydrALAZINE 25 MG TAB PER TUBE SCH (21:40)
[2019-08-30] MEDS: Ondansetron ODT 4 MG TAB SL PRN ×4 (00:57→19:25)
[2019-08-30] MEDS ORDERED: Lidocaine 5% Patch TD SCH ×2 (09:00→21:00)
[2019-08-30] MEDS ORDERED: Lidocaine Patch Removal 1 EACH TOP SCH (09:00)
[2019-08-30] MEDS: Metoprolol Tartrate 25 MG TAB PER TUBE SCH ×3 (09:11→22:38)
[2019-08-30] MEDS: Pantoprazole 40 MG GRANULES PACKET PER TUBE SCH ×3 (09:11→22:39)
[2019-08-30] MEDS: Megestrol Acetate 400 MG/10 ML UDCUP PER TUBE SCH (09:11)
[2019-08-30] MEDS: Furosemide 20 MG TAB PER TUBE SCH (09:12)
[2019-08-30] MEDS: hydrALAZINE 25 MG TAB PER TUBE SCH ×4 (09:12→22:38)
[2019-08-30] MEDS: Amlodipine 5 MG TAB PER TUBE SCH (09:12)
--- NOTE | 2019-08-30 15:28 | CT ---
CT OF PELVIS PERFORMED WITHOUT CONTRAST ENHANCEMENT: 08/30/19 HISTORY: Fall with pelvic pain. There are postoperative changes of the sigmoid colon. No pelvic mass or fluid collections. There are arthritic changes of the lower lumbar spine. SI joints shows some very mild arthritic change. No frac ture of the sacrum. The superior as well as inferior pubic rami are intact. There are some arthritic changes of the hip but no evidence of fracture. IMPRESSION: No CT evidence for acute injury. POS: [facility]
[2019-08-30] MEDS ORDERED: Metoclopramide 10 MG/10 ML UDCUP PER TUBE PRN (18:27)
[2019-08-30] MEDS: Meclizine HCl 25 MG TAB PER TUBE PRN (19:25)
[2019-08-30] MEDS: Lidocaine Patch Removal 1 EACH TOP SCH (20:05)
--- NOTE | 2019-08-31 00:05 | HP ---
SPECIALISTS: 1. Dr. Braun, General Surgery. 2. Dr. Brandan Coronel, Neurosurgery. REASON FOR ADMISSION: To [facility] for skilled rehab. HISTORY OF PRESENT ILLNESS AND HOSPITAL COURSE: Ms. Beth is a 63-year-old with multiple chronic medical conditions including long-term hypertension, morbid obesity, dyslipidemia, CAD, chronic GERD and history of intracerebral hemorrhage in June of 2019, s/p story of ventriculoperitoneal shunt in June of 2019, s/p tracheostomy and PEG tube placed on July 24, 2019. He was undergoing rehab prior to this recent admission. The patient presented to [facility] on 2019 with hematemesis and bleeding around the PEG tube site. Per report, it appeared that the hematemesis is likely related to the PEG tube. The PEG tube has been replaced by Dr. Braun, on 08/26/2019. She remained hemodynamically stable postprocedure and PEG tube was functioning. She was discharge to [facility] per patient's request on 08/29/2019 for purposes of rehab. When she was admitted last night, the patient presented with nausea, vomiting, and dizziness. She reports that she has been having nausea and vomiting even prior to transfer to [facility]. The patient reports that her PEG tube feeding has been bothering her for this. She was started on oral feeding prior to this recent hospitalization and has been doing good. She is currently tolerating a soft mechanical diet and clear liquids without issues. She only gets PEG tube feeding at bedtime. When she received her feeding last night, she developed another nausea and vomiting as well. The patient reports that she has had a history of chronic vertigo. The dizziness that she described is the similar lightheadedness every now and then that she had even before and this is not new to her. This morning after patient was seen by the dietitian, her PEG feeding was ordered to t.i.d. instead. PEG tube feeding was well tolerated without significant vomiting, but the patient does not want to do this at this time. She has been eating fine. The patient is also complaining at present of hip pain, low back pain. She reports that she has been having this even from the hospital. She was started on lidocaine patch and did well. The patient reports that she started having pain on the left hip and the one patch on the left is helping adequately controlling the pain. Today, she is complaining of both hip and sacral pain. She reports that she has had a fall while she was in another facility prior to this hospitalization. She states that when she was transferred to [facility], she slipped off the bed and went to the floor in a standing position. There was no imaging studies obtained at that time. Overall, patient did work well with therapy today without significant issues. PAST MEDICAL HISTORY: 1. Cerebral hemorrhage status s/p ventriculostomy in June of 2019. 2. Hydrocephalus, cerebral hemorrhage sequela. S/P V-P shunt. 3. Hypertension. 4. Morbid obesity. 5. History of breast cancer. 6. Dyslipidemia. 7. Asthma. 8. GERD. 9. Chronic borderline diabetes. 10. History of iron deficiency anemia. 11. History of pericardial effusion with no evidence of cardiac tamponade in 2009. 12. Restrictive lung disease per PFT. 13. Diverticulosis of colon with hemorrhage. 14. Lymphedema of the left arm following lymphadenectomy. 15. History of diverticulitis. PAST SURGICAL HISTORY: 1. History of ventriculoperitoneal shunt in June of 2019. 2. Tracheostomy and PEG tube placed on July 24, 2019. 3. Right total knee replacement. 4. Hysterectomy in 1996. 5. Lymphectomy with lymph node dissection at [facility]. 6. Appendectomy and part of the colon removal with flaps in 2014. 7. [employer] catheterization implanted by Antonio Ledbetter , lot #[id number]. 8. Left groin surgery 03/14/2015. 9. Right total knee replacement, 11/24/2016. 10. Hernia repair and colon surgery 07/2017. 11. Replacement of PEG tube in 07/2019. IMAGING: Echocardiogram in 09/2018 showed mild grade diastolic dysfunction with aortic stenosis. FAMILY HISTORY: Mother is alive with high long-term hypertension and has liver complications. Father with siblings. Two sister . One sister with hypertension. SOCIAL HISTORY: The patient is . Never been a smoker. Denies alcohol or illicit drug use. ALLERGIES: 1. LEVAQUIN, REACTION: HIVES. 2. PREDNISONE. HOSPITALIZATIONS: 1. Hemicolectomy and ventral hernia repair by Dr. Bentley at [facility], 07/2017. 2. Fracture of left ankle due to fall while in the hospital, status post cast placement by Dr. Houston, 07/2017. 3. Hysterectomy in 1996. 4. Lumpectomy with lymph node dissection on the left breast in 03/2012. 5. Diverticular bleed, right colectomy appendectomy requiring transfusion x4 in 03/2015. 6. Rectal bleeding 08/13/19 to 08/14/2015. 7. Cerebral hemorrhage at [facility], 06/2020. 8. GI bleeding, deemd from PEG tube complication, 08/26/2019 at [facility] CURRENT MEDICATIONS: 1. Amlodipine 5 mg via PEG tube daily. 2. Lasix 20 mg per PEG daily. 3. Guaifenesin 200 mg every 4 hours p.r.n. 4. Hydralazine 25 mg 3 times daily via PEG. 5. Ativan 0.5 mg per PEG twice daily. 6. Megace 400 mg per PEG daily. 7. Metoprolol tartrate 50 mg twice daily per PEG. 8. Zofran 4 mg four times sublingual as needed. 9. Lisinopril 5 mg b.i.d. per PEG. 10. Pantoprazole 40 mg via PEG tube b.i.d. 11. Acetaminophen 650 mg q.4 hours p.r.n. REVIEW OF SYSTEMS: GENERAL: Reports fatigue, general weakness. No fever, no chills with decreased appetite. HEENT: Reports some blurry vision. No acute visual loss or pain. No cold symptoms. Reports intermittent headaches. RESPIRATORY: No shortness of breath or wheezing. No cough. CARDIAC: No chest pain, dyspnea on exertion, palpitations. EXTREMITIES: Reports intermittent leg edema. GI: Denies diarrhea, constipation , incontinence, rectal bleeding, melena, hematochezia, hematemesis. GENITOURINARY: No dysuria, hematuria, frequency, urgency, or incontinence. MUSCULOSKELETAL: Reports chronic right knee pain intermittently, low back/hip pain per HPI. No joint effusions. No erythema. SKIN: No rashes. No lesions. No pruritus. NEUROLOGIC: No focal weakness. No focal paralysis. Spontaneous speech. No seizures, tics, or tremors. PSYCHIATRIC: Reports anxiety. No depressive symptoms. No hallucinations. No suicidal thoughts, ideations, or plans. PHYSICAL EXAMINATION: VITAL SIGNS: Blood pressure 138/70, 64 pulse rate, temperature 97.2, respiration 20, O2 sats 94% on room air, weight 256 pounds and 12 ounces, height 5 feet 4 inches. GENERAL: The patient is awake, alert, generally weak looking, morbidly obese, comfortable on exam, not in distress. HEENT: Normocephalic, intact postoperative site. PERRL, intact EOM, nonicteric sclerae. Oral mucosa is moist. Tongue in the midline. No tremors. NECK: Supple. No LAD. No JVD. CHEST: Normal excursion. Nonlabored breathing. LUNGS: Good air movements. Clear to auscultation bilaterally. No rales. No crackles. No rhonchi. No wheezing. CARDIAC: Normal rate, regular rhythm. ABDOMEN: Obese. PEG tube is intact, covered with clean dressing. No erythema around the site. Nontender to touch. Normoactive bowel sounds. Negative CVA tenderness bilaterally. BACK: No swelling. No erythema. No rashes. Reports tenderness on direct palpation of the sacral and pelvic region. EXTREMITIES: Without any pitting edema or cyanosis. Tenderness on hips. NEUROLOGIC: Awake, alert, and oriented x3 with spontaneous speech, answers questions with appropriateness. No neurological deficits. Gait unsteady, requiring assistance when ambulating. LABORATORY DATA: Labs/tests: On 08/27/2019, WBC 10.8, hemoglobin 11.3, hematocrit 35.5, platelets 194. Sodium 140, potassium 3.4, chloride 100, anion gap 10, BUN 14, creatinine 0.76, estimated GFR greater than 90, glucose 102, calcium 9.5. ASSESSMENT AND PLAN: 1. Deconditioning general weakness. 2. Hematemesis and bleeding around the percutaneous endoscopic gastrostomy tube, resolved status post replacement of percutaneous endoscopic gastrostomy tube on 08/26/2019. 3. Cerebral hemorrhage status post ventriculostomy placement in June of 2019. 4. Hydrocephalus status post ventriculoperitoneal shunt. 5. Hypertension. 6. Dysphagia, CVA sequelae, S/P PEG tube placement. 7. Diastolic dysfunction. 8. Nausea and vomiting, nonspecific. 9. Anxiety. 10. Benign positional vertigo. 11. Gastroesophageal reflux disease . 12. Acute hip pain, pelvic pain 13. Unsteady gait. 14. History of fall. 15. Morbid obesity. PLAN: 1. The patient is admitted to [facility] for purposes of skilled rehab. PT, OT and ST were consulted. 2. Diet is soft mechanical and thin liquids. 3. Routine PEG shoe care per protocol. 4. Consult dietitian for calorie counting. 5. Continue all current medications as modified per list. 6. We will add meclizine and metoclopramide for symptomatic management 7. We will hold off PEG tube feeding per patient's secondary to GI issues. 8. I spoke to dietitian today to adjust her oral intake accordingly. 9. We will obtain imaging studies to rule out fracture or dislocation of the hip/pelvis secondary to reported recent fall. 10. We will increase lidocaine patch to 2 mg daily. 11. We will add tramadol 50 mg q.i.d. p.r.n. 12. Fall precautions. 13. Further recommendations depending on the hospital course 14. Estimated length of stay is 3-4 weeks. CODE STATUS: The patient reports FULL CODE. Job ID: [id number] MTDD
[2019-08-31] MEDS: Meclizine HCl 25 MG TAB PER TUBE PRN (07:51)
[2019-08-31] MEDS: Lidocaine 5% Patch TD SCH (09:24)
[2019-08-31] MEDS: Ondansetron ODT 4 MG TAB SL PRN (09:25)
[2019-08-31] MEDS: Saccharomyces boulardii 250 MG CAP PER TUBE SCH (09:25)
[2019-08-31] MEDS: Metoprolol Tartrate 25 MG TAB PER TUBE SCH ×2 (09:25→20:34)
[2019-08-31] MEDS: Metoclopramide HCl 10 MG TAB PER TUBE PRN (09:25)
[2019-08-31] MEDS: Pantoprazole 40 MG GRANULES PACKET PER TUBE SCH ×2 (09:25→20:34)
[2019-08-31] MEDS: Megestrol Acetate 400 MG/10 ML UDCUP PER TUBE SCH (09:25)
[2019-08-31] MEDS: Amlodipine 5 MG TAB PER TUBE SCH (09:26)
[2019-08-31] MEDS: Furosemide 20 MG TAB PER TUBE SCH (09:26)
[2019-08-31] MEDS: hydrALAZINE 25 MG TAB PER TUBE SCH ×3 (09:26→20:33)
[2019-08-31] MEDS: traMADol HCl 50 MG TAB PER TUBE PRN (10:16)
[2019-08-31] MEDS: Lidocaine Patch Removal 1 EACH TOP SCH (20:34)
[2019-09-01] MEDS: Ondansetron ODT 4 MG TAB SL PRN (05:01)
[2019-09-01] MEDS: Meclizine HCl 25 MG TAB PER TUBE PRN (05:03)
[2019-09-01] MEDS: Metoclopramide HCl 10 MG TAB PER TUBE PRN (07:05)
[2019-09-01] MEDS: Amlodipine 5 MG TAB PER TUBE SCH (09:18)
[2019-09-01] MEDS: hydrALAZINE 25 MG TAB PER TUBE SCH ×3 (09:20→20:34)
[2019-09-01] MEDS: Furosemide 20 MG TAB PER TUBE SCH (09:20)
[2019-09-01] MEDS: Metoprolol Tartrate 25 MG TAB PER TUBE SCH ×2 (09:21→20:35)
[2019-09-01] MEDS: Pantoprazole 40 MG GRANULES PACKET PER TUBE SCH ×2 (09:21→20:35)
[2019-09-01] MEDS: Lidocaine 5% Patch TD SCH (09:21)
[2019-09-01] MEDS: Megestrol Acetate 400 MG/10 ML UDCUP PER TUBE SCH (09:21)
[2019-09-01] MEDS: Saccharomyces boulardii 250 MG CAP PER TUBE SCH (09:22)
[2019-09-01] MEDS: Lidocaine Patch Removal 1 EACH TOP SCH (20:34)
[2019-09-01] MEDS: Polyethylene Glycol 3350 17 GM Packet PO SCH (20:35)
[2019-09-02] MEDS: hydrALAZINE 25 MG TAB PER TUBE SCH ×3 (08:15→20:33)
[2019-09-02] MEDS: Saccharomyces boulardii 250 MG CAP PER TUBE SCH (08:15)
[2019-09-02] MEDS: Pantoprazole 40 MG GRANULES PACKET PER TUBE SCH ×2 (08:15→20:33)
[2019-09-02] MEDS: Amlodipine 5 MG TAB PER TUBE SCH (08:16)
[2019-09-02] MEDS: Metoprolol Tartrate 25 MG TAB PER TUBE SCH ×2 (08:16→20:33)
[2019-09-02] MEDS: Furosemide 20 MG TAB PER TUBE SCH (08:16)
[2019-09-02] MEDS: Lidocaine 5% Patch TD SCH (08:17)
[2019-09-02] MEDS: Megestrol Acetate 400 MG/10 ML UDCUP PER TUBE SCH (08:17)
[2019-09-02] MEDS: Polyethylene Glycol 3350 17 GM Packet PO SCH (20:33)
[2019-09-02] MEDS: Lidocaine Patch Removal 1 EACH TOP SCH (20:33)
[2019-09-03] MEDS: Megestrol Acetate 400 MG/10 ML UDCUP PER TUBE SCH (08:20)
[2019-09-03] MEDS: Furosemide 20 MG TAB PER TUBE SCH (08:20)
[2019-09-03] MEDS: Metoprolol Tartrate 25 MG TAB PER TUBE SCH ×2 (08:20→20:36)
[2019-09-03] MEDS: Amlodipine 5 MG TAB PER TUBE SCH (08:21)
[2019-09-03] MEDS: hydrALAZINE 25 MG TAB PER TUBE SCH ×3 (08:21→20:36)
[2019-09-03] MEDS: Saccharomyces boulardii 250 MG CAP PER TUBE SCH (08:22)
[2019-09-03] MEDS: Lidocaine 5% Patch TD SCH (08:22)
[2019-09-03] MEDS: Pantoprazole 40 MG GRANULES PACKET PER TUBE SCH (08:22)
[2019-09-03] MEDS: Lorazepam 0.5 MG TAB PER TUBE PRN (20:35)
[2019-09-03] MEDS: Polyethylene Glycol 3350 17 GM Packet PO SCH (20:36)
[2019-09-03] MEDS: Lidocaine Patch Removal 1 EACH TOP SCH (20:37)
[2019-09-04] MEDS: Megestrol Acetate 400 MG/10 ML UDCUP PER TUBE SCH (08:44)
[2019-09-04] MEDS: hydrALAZINE 25 MG TAB PER TUBE SCH ×3 (08:44→20:42)
[2019-09-04] MEDS: Saccharomyces boulardii 250 MG CAP PER TUBE SCH (08:44)
[2019-09-04] MEDS: Amlodipine 5 MG TAB PER TUBE SCH (08:45)
[2019-09-04] MEDS: Furosemide 20 MG TAB PER TUBE SCH (08:45)
[2019-09-04] MEDS: Metoprolol Tartrate 25 MG TAB PER TUBE SCH ×2 (08:45→20:43)
[2019-09-04] MEDS: Lidocaine 5% Patch TD SCH (08:51)
[2019-09-04] MEDS ORDERED: Sodium Chloride Irrig Solution 250 ML BOT ONE (14:11)
[2019-09-04] MEDS: Ondansetron ODT 4 MG TAB SL PRN (20:29)
[2019-09-04] MEDS: Lidocaine Patch Removal 1 EACH TOP SCH (20:42)
[2019-09-04] MEDS: Polyethylene Glycol 3350 17 GM Packet PO SCH (20:43)
[2019-09-04] MEDS: Lorazepam 0.5 MG TAB PER TUBE PRN (20:44)
[2019-09-05] MEDS: Metoprolol Tartrate 25 MG TAB PER TUBE SCH ×2 (08:19→20:09)
[2019-09-05] MEDS: Saccharomyces boulardii 250 MG CAP PER TUBE SCH (08:19)
[2019-09-05] MEDS: Amlodipine 5 MG TAB PER TUBE SCH (08:20)
[2019-09-05] MEDS: Lidocaine 5% Patch TD SCH (08:20)
[2019-09-05] MEDS: hydrALAZINE 25 MG TAB PER TUBE SCH ×3 (08:20→20:10)
[2019-09-05] MEDS: Megestrol Acetate 400 MG/10 ML UDCUP PER TUBE SCH (08:20)
[2019-09-05] MEDS: Furosemide 20 MG TAB PER TUBE SCH (08:20)
[2019-09-05] MEDS: Lidocaine Patch Removal 1 EACH TOP SCH (20:10)
[2019-09-05] MEDS: Lorazepam 0.5 MG TAB PER TUBE PRN (20:11)
[2019-09-05] MEDS: Polyethylene Glycol 3350 17 GM Packet PO SCH (20:11)
[2019-09-06] MEDS: Saccharomyces boulardii 250 MG CAP PER TUBE SCH (07:59)
[2019-09-06] MEDS: Amlodipine 5 MG TAB PER TUBE SCH (07:59)
[2019-09-06] MEDS: hydrALAZINE 25 MG TAB PER TUBE SCH ×3 (07:59→20:07)
[2019-09-06] MEDS: Furosemide 20 MG TAB PER TUBE SCH (07:59)
[2019-09-06] MEDS: Metoprolol Tartrate 25 MG TAB PER TUBE SCH ×2 (07:59→20:08)
[2019-09-06] MEDS: Megestrol Acetate 400 MG/10 ML UDCUP PER TUBE SCH (07:59)
[2019-09-06] MEDS: Lidocaine 5% Patch TD SCH (08:00)
[2019-09-06] MEDS: Acetaminophen 325 MG TAB PO PRN (19:19)
[2019-09-06] MEDS: Lidocaine Patch Removal 1 EACH TOP SCH (19:29)
[2019-09-06] MEDS: Polyethylene Glycol 3350 17 GM Packet PO SCH (20:09)
[2019-09-06] MEDS: Lorazepam 0.5 MG TAB PER TUBE PRN (20:12)
[2019-09-07] MEDS: Megestrol Acetate 400 MG/10 ML UDCUP PER TUBE SCH (08:27)
[2019-09-07] MEDS: Amlodipine 5 MG TAB PER TUBE SCH (08:28)
[2019-09-07] MEDS: Furosemide 20 MG TAB PER TUBE SCH (08:30)
[2019-09-07] MEDS: Metoprolol Tartrate 25 MG TAB PER TUBE SCH ×2 (08:30→20:25)
[2019-09-07] MEDS: hydrALAZINE 25 MG TAB PER TUBE SCH ×3 (08:30→20:25)
[2019-09-07] MEDS: Saccharomyces boulardii 250 MG CAP PER TUBE SCH (08:30)
[2019-09-07] MEDS: Lidocaine 5% Patch TD SCH (08:31)
[2019-09-07] MEDS ORDERED: Loratadine 10 MG TAB PO SCH (10:45)
[2019-09-07] MEDS: Lidocaine Patch Removal 1 EACH TOP SCH (20:25)
[2019-09-07] MEDS: Polyethylene Glycol 3350 17 GM Packet PO SCH (20:25)
[2019-09-07] MEDS: Acetaminophen 325 MG TAB PO PRN (20:26)
[2019-09-07] MEDS: Lorazepam 0.5 MG TAB PER TUBE PRN (20:26)
[2019-09-08] MEDS: hydrALAZINE 25 MG TAB PER TUBE SCH ×3 (08:21→21:39)
[2019-09-08] MEDS: Furosemide 20 MG TAB PER TUBE SCH (08:21)
[2019-09-08] MEDS: Loratadine 10 MG TAB PO SCH (08:21)
[2019-09-08] MEDS: Metoprolol Tartrate 25 MG TAB PER TUBE SCH ×2 (08:22→21:40)
[2019-09-08] MEDS: Lidocaine 5% Patch TD SCH (08:23)
[2019-09-08] MEDS: Amlodipine 5 MG TAB PER TUBE SCH (08:23)
[2019-09-08] MEDS: Lidocaine Patch Removal 1 EACH TOP SCH (21:40)
[2019-09-08] MEDS: Lorazepam 0.5 MG TAB PER TUBE PRN (21:40)
[2019-09-08] MEDS: Polyethylene Glycol 3350 17 GM Packet PO SCH (21:41)
[2019-09-09] MEDS: traMADol HCl 50 MG TAB PER TUBE PRN (05:35)
[2019-09-09] MEDS: Lidocaine 5% Patch TD SCH (09:06)
[2019-09-09] MEDS: hydrALAZINE 25 MG TAB PER TUBE SCH ×3 (09:06→20:36)
[2019-09-09] MEDS: Metoprolol Tartrate 25 MG TAB PER TUBE SCH ×2 (09:07→20:37)
[2019-09-09] MEDS: Amlodipine 5 MG TAB PER TUBE SCH (09:07)
[2019-09-09] MEDS: Loratadine 10 MG TAB PO SCH (09:08)
[2019-09-09] MEDS: Furosemide 20 MG TAB PER TUBE SCH (09:08)
[2019-09-09] MEDS: Lidocaine Patch Removal 1 EACH TOP SCH (20:36)
[2019-09-09] MEDS: Polyethylene Glycol 3350 17 GM Packet PO SCH (20:37)
[2019-09-10] MEDS: traMADol HCl 50 MG TAB PER TUBE PRN (03:19)
[2019-09-10] MEDS: Ondansetron ODT 4 MG TAB SL PRN (03:20)
[2019-09-10] MEDS: Lidocaine 5% Patch TD SCH (08:27)
[2019-09-10] MEDS: Metoprolol Tartrate 25 MG TAB PER TUBE SCH (08:28)
[2019-09-10] MEDS: Amlodipine 5 MG TAB PER TUBE SCH (08:28)
[2019-09-10] MEDS: Furosemide 20 MG TAB PER TUBE SCH (08:28)
[2019-09-10] MEDS: Loratadine 10 MG TAB PO SCH (08:28)
[2019-09-10] MEDS: hydrALAZINE 25 MG TAB PER TUBE SCH ×2 (08:29→15:22)
[2019-09-10] MEDS ORDERED: Mag-Al 1200 mg/1200 mg/30 ML UDCUP PO PRN (18:50)
[2019-09-10] MEDS ORDERED: traMADol HCl 50 MG TAB PO PRN (19:00)
[2019-09-10] MEDS ORDERED: Diabetic Tussin 200 MG/10 ML UDCUP PO PRN (19:00)
[2019-09-10] MEDS ORDERED: Metoclopramide HCl 10 MG TAB PO PRN (19:00)
[2019-09-10] MEDS: hydrALAZINE 25 MG TAB PO SCH (20:27)
[2019-09-10] MEDS: Polyethylene Glycol 3350 17 GM Packet PO SCH (20:28)
[2019-09-10] MEDS: Lidocaine Patch Removal 1 EACH TOP SCH (20:28)
[2019-09-10] MEDS: Metoprolol Tartrate 25 MG TAB PO SCH (20:28)
[2019-09-10] MEDS: Lorazepam 0.5 MG TAB PO PRN (20:29)
[2019-09-10] MEDS: Acetaminophen 325 MG TAB PO PRN (20:48)
[2019-09-11] MEDS: Furosemide 20 MG TAB PO SCH (08:10)
[2019-09-11] MEDS: Loratadine 10 MG TAB PO SCH (08:10)
[2019-09-11] MEDS: Amlodipine 5 MG TAB PO SCH (08:10)
[2019-09-11] MEDS: Lidocaine 5% Patch TD SCH (08:11)
[2019-09-11] MEDS: hydrALAZINE 25 MG TAB PO SCH ×3 (08:11→20:43)
[2019-09-11] MEDS: Metoprolol Tartrate 25 MG TAB PO SCH ×2 (08:11→20:43)
[2019-09-11] MEDS: Lorazepam 0.5 MG TAB PO PRN (20:43)
[2019-09-11] MEDS: Polyethylene Glycol 3350 17 GM Packet PO SCH (20:45)
[2019-09-12] MEDS: Amlodipine 5 MG TAB PO SCH (08:43)
[2019-09-12] MEDS: hydrALAZINE 25 MG TAB PO SCH ×3 (08:44→20:33)
[2019-09-12] MEDS: Metoprolol Tartrate 25 MG TAB PO SCH ×2 (08:45→20:33)
[2019-09-12] MEDS: Loratadine 10 MG TAB PO SCH (08:45)
[2019-09-12] MEDS: Furosemide 20 MG TAB PO SCH (08:47)
[2019-09-12] MEDS: Polyethylene Glycol 3350 17 GM Packet PO SCH (20:36)
[2019-09-12] MEDS: Lorazepam 0.5 MG TAB PO PRN (20:37)
[2019-09-12] MEDS: Meclizine HCl 25 MG TAB PO PRN (20:38)
[2019-09-13] MEDS: Metoprolol Tartrate 25 MG TAB PO SCH ×2 (08:33→21:19)
[2019-09-13] MEDS: Furosemide 20 MG TAB PO SCH (08:33)
[2019-09-13] MEDS: Loratadine 10 MG TAB PO SCH (08:33)
[2019-09-13] MEDS: Amlodipine 5 MG TAB PO SCH (08:33)
[2019-09-13] MEDS: hydrALAZINE 25 MG TAB PO SCH ×3 (08:33→21:18)
[2019-09-13] MEDS: Meclizine HCl 25 MG TAB PO PRN ×2 (08:35→21:19)
[2019-09-13 14:32] VITALS: BMI 44.9
[2019-09-13] MEDS ORDERED: hydrALAZINE 10 MG TAB PO PRN (19:38)
[2019-09-13] MEDS: Lorazepam 0.5 MG TAB PO PRN (21:19)
[2019-09-13] MEDS: Polyethylene Glycol 3350 17 GM Packet PO SCH (21:20)
[2019-09-14] MEDS: Loratadine 10 MG TAB PO SCH (08:46)
[2019-09-14] MEDS: Furosemide 20 MG TAB PO SCH (08:46)
[2019-09-14] MEDS: Meclizine HCl 25 MG TAB PO PRN (08:46)
[2019-09-14] MEDS: Lorazepam 0.5 MG TAB PO PRN (08:46)
[2019-09-14] MEDS: hydrALAZINE 25 MG TAB PO SCH (08:47)
[2019-09-14] MEDS: Amlodipine 5 MG TAB PO SCH (08:47)
[2019-09-14] MEDS: Metoprolol Tartrate 25 MG TAB PO SCH (08:47)
[2019-09-14 08:48] VITALS: BP 132/62
[2019-09-14 11:04] VITALS: TEMP 99.6
--- NOTE | 2019-09-16 04:40 | DIS ---
DATE OF ADMISSION: 08/29/2019 DATE OF DISCHARGE: 09/14/2019 REASON FOR ADMISSION: Skilled rehab in [facility] bed from recent hospitalization. FINAL DIAGNOSES: 1. Deconditioning secondary to general weakness. 2. Recent cerebrovascular accident secondary to cerebral hemorrhage status post ventriculostomy in June of 2019. 3. Status post tracheostomy and percutaneous endoscopic gastrostomy tube placement in July of 2019. 4. Dysphagia, CVA sequelae.Improve. 5. Cerebrovascular accident sequelae, status post percutaneous endoscopic gastrostomy tube placement in July of 2019, status post percutaneous endoscopic gastrostomy tube replacement on 08/26/2019 secondary to percutaneous endoscopic gastrostomy tube dysfunction. 6. Hematemesis and bleeding around the percutaneous endoscopic gastrostomy tube, resolved. 7. Hydrocephalus, cerebrovascular accident sequelae, status post ventriculoperitoneal shunt in June of 2019. 8. Hypertension. 9. Diastolic dysfunction. 10. Benign positional vertigo. 11. Gastroesophageal reflux. 12. Degenerative joint disease of the hip. 13. Unsteady gait, needing assistance. 14. History of fall. 15. Morbid obesity. DISPOSITION: Home with spouse. CONDITION ON DISCHARGE: Stable. MEDICATIONS: Amlodipine 5 mg p.o. daily. Lasix 20 mg p.o. daily. Hydralazine 75 mg b.i.d. Metoprolol tartrate 75 mg b.i.d. p.o. Lisinopril 5 mg b.i.d. p.o. Pantoprazole 40 mg p.o. b.i.d. Acetaminophen 650 mg q.4 hours p.r.n. Loratadine 10 mg p.o. daily. Meclizine 25 mg p.o. t.i.d. p.r.n. DIET: 1. Regular thin liquid, heart healthy. ACTIVITY: 1. To use rolling walker at all times. Fall precautions. FOLLOWUP: 1. Follow up with Dr. Lujan in 1 to 2 weeks sooner with concern. 2. Follow up with Dr. Braun any time as outpatient for possible PEG tube removal per patient's request. 3. Follow up with Dr. Coronel for neurosurgery care in 3 months or as previously scheduled. 4. Refer to interim home health per request for mcc, PT/OT eval and treat. HISTORY OF THE PRESENT ILLNESS AND HOSPITAL COURSE: Ms. Beth is a 63-year-old female with long-term history of hypertension, dyslipidemia, morbid obesity, CAD, who had a recent intracerebral hemorrhage in June of 2019, status post history of ventriculostomy in June of 2019, status post tracheostomy and PEG tube placed on July 24, 2019. After she was stabilized in [facility] in [place], she was transferred to [facility] out of town for rehab. The patient was then transferred to [facility] thereafter. She has not been in [facility] but few hours when she had reported hematemesis and bleeding that was deemed around the PEG tube site. She was then admitted back in August of 2019 to [facility] and her PEG tube was replaced by Dr. Braun on 08/26/2019. Postprocedure, there was no significant GI bleeding noted. The patient continued feeding through PEG tube, but she was started on mechanical soft diet and thin liquids for which she tolerated well. The patient then was transferred to [facility] per request to continue skilled rehab. During her rehab course in [facility], the patient reported nausea and vomiting and intolerance to PEG tube feeding. She was only getting PEG tube feeding at bedtime when she came to [facility], but persistently reported intolerance, so PEG tube feeding was discontinued. The patient did well with her oral intake and was consuming almost 90% to 100% of all her meals thereafter. Nausea and vomiting eventually resolved. The patient is wanting removal of the PEG tube feeding tube and this was scheduled with Dr. Braun as outpatient. Overall , the patient's functional mobility has markedly improved during her rehab course. She was walking 300 feet using rolling walker with contact guard assist prior to discharge. She was deemed to benefit with further outpatient therapy versus home health. The patient requested for home health secondary to transportation issues. She was referred to home health prior to discharge. Prior to discharge, the patient also made a followup with Neurosurgery. She saw Dr. Coronel on 09/12/2019 and had made a good report from the neurosurgeon. She will go back to Dr. Coronel for followup in 3 months. During her rehab course, the patient's overall appetite and oral intake had improved markedly thus Megace was discontinued. The patient had been complaining of intermittent dizziness with lightheadedness especially with movements. This is associated with diplopia, mostly on the left eye. This was mentioned and discussed by patient with the neurosurgeon during her last visit and was told that this is not related to her most recent cranial procedure, thus she was recommended to follow up with PCP. The patient reports chronic history of intermittent vertigo, which is not worse nor different from what she is having at this point. We plan to refer patient to ENT as outpatient during her visit in the clinic for further evaluation. Overall, the patient's clinical status has markedly improved on 09/14/2019. The patient is very adamant to go home. Family is comfortable with this, thus discharged. PHYSICAL EXAMINATION: VITAL SIGNS: Prior to discharge; blood pressure 132/62, temp 99.6, pulse 93, respirations 18, O2 saturation 97%, weight 261 pounds and 9 ounces, height 5 feet 4 inches. Job ID: [id number] [facility]
== END 2019-09-14 14:00 | disposition home or self-care (01) | DRG 57 ==
LOC: MADMS 18:20
PROVIDERS: ADMIT Family Medicine; ATTEND Family Medicine
DX: I69.191 Dysphagia following nontraumatic intracerebral hemorrhage (principal); Z43.1 Encounter for attention to gastrostomy; G91.9 Hydrocephalus, unspecified; Z68.41 Body mass index [BMI] 40.0-44.9, adult; R11.2 Nausea with vomiting, unspecified; I10 Essential (primary) hypertension; H81.10 Benign paroxysmal vertigo, unspecified ear; R13.10 Dysphagia, unspecified; R26.9 Unspecified abnormalities of gait and mobility; E66.01 Morbid (severe) obesity due to excess calories; Z93.1 Gastrostomy status; E78.5 Hyperlipidemia, unspecified; I25.10 Atherosclerotic heart disease of native coronary artery without angina pectoris; K21.9 Gastro-esophageal reflux disease without esophagitis; M16.0 Bilateral primary osteoarthritis of hip; Z98.2 Presence of cerebrospinal fluid drainage device; Z85.3 Personal history of malignant neoplasm of breast; E11.9 Type 2 diabetes mellitus without complications; Z96.651 Presence of right artificial knee joint; Z93.0 Tracheostomy status; Z98.890 Other specified postprocedural states; Z88.1 Allergy status to other antibiotic agents; Z88.8 Allergy status to other drugs, medicaments and biological substances; Z90.49 Acquired absence of other specified parts of digestive tract; F41.9 Anxiety disorder, unspecified
CPT/HCPCS: 72192; J8597; Q0162

== ENCOUNTER 2020-03-20 12:13 | Emergency (ER) | payer BC, MEDICARE ==
--- NOTE | 2020-03-20 13:56 | RAD ---
PA AND LATERAL VIEWS CHEST: Date: 03/20/2020 HISTORY: Cough, COVID-19 exposure. COMPARISON: 05/30/2019. FINDINGS: The heart size is borderline. The aorta is tortuous. The lungs are well expanded without foal areas o f consolidation, pneumothoraces, jossie pulmonary edema, or pleural effusions. There are degenerative changes in the spine. IMPRESSION: No acute process. POS: OFF
== END 2020-03-20 13:45 | disposition home or self-care (01) ==
LOC: MADERS 12:13
DX: R05 Cough (principal); R11.0 Nausea; Z20.828 Contact with and (suspected) exposure to other viral communicable diseases; I10 Essential (primary) hypertension; K21.9 Gastro-esophageal reflux disease without esophagitis
CPT/HCPCS: 71046

== ENCOUNTER 2020-03-27 14:42 | Observation (INO) | payer MEDICARE ==
[2020-03-27 17:57] VITALS: BP 171/105; TEMP 99.2
[2020-03-27 17:58] VITALS: BMI 37.0
--- NOTE | 2020-03-28 05:24 | SS ---
DATE OF ADMISSION: 03/27/2020 DATE OF DISCHARGE: 03/27/2020 HISTORY OF THE PRESENT ILLNESS AND HOSPITAL COURSE: Ms. Beth is a 64-year-old female with significant history of hypertension, history of breast cancer, history of CVA due to intracerebral hemorrhage and morbid obesity. The patient was initially seen in [facility] on 03/25/2020 secondary to cold symptoms with history of COVID-19 exposure from her daughter whom she lives with. She has had a COVID screening test on the same day, is currently pending results. During the time of the visit, the patient mentioned regarding her current social situation, social exclusion and rejection. The patient then called back on 03/27/2020. Called back the clinic wanting to talk directly to the PCP. Tele-visit was made with the patient who expressed depressive symptoms and generalized anxiety. Per depression screen, patient has a moderate to severe depressive symptoms. At that time, she was isolated in her home and was very fearful, tearful and depressed, requesting help. There was no significant thoughts of harming self or others at that time. The patient then was recommended for 24-hour observation at [facility] for possible [facility] psych evaluation. The patient then agreed and was subsequently admitted through the help of APS agent who coordinated with the family. She was brought by her daughter to [facility] as discussed and was admitted. Initial vital signs showed blood pressure 171/105, temp 99.2, pulse 83, respirations 18, O2 saturation 95% on room air. Weight 250 pounds and height 5 feet 4 inches. The patient was admitted in an isolation pending COVID testing results. When seen, the patient was awake, alert, oriented, and speaks in full sentences. There was no signs of acute respiratory distress. When seen, the patient was talking to her sister on the phone who requested to be placed on speaker phone while I talked to the patient. Clinically, the patient was stable. She was afebrile and able to express herself. On further discussion with the patient in the presence of her sister, Wendy, on the phone, the patient then becomes tearful when plan for possible discharge in the morning versus further observation and/or home isolation if COVID test comes back positive. The patient then requested to go back home. Sister tried to convince the patient to stay in bed. The patient cries more. Despite of lengthy discussion of the benefits of further observation in the hospital and trial of medications to help her depression and emotional state, the patient then insists to go home. She called her daughter and her daughter picked her up. The medications ordered for trazodone and anxiolytic was not received. AMA waiver was signed by the patient. Vital signs prior to discharge, blood pressure 156/78, respirations 18, O2 sats 95%, temperature 99.2, pulse 76. The patient is awake, alert, and oriented x3. She was in no apparent distress and able to make informed decisions. Prior to discharge the patient reports that she was eating fine and back to her usual state. The patient then was discharged home at 1900. DIAGNOSES: 1. Major to severe depression, single episode. No psychosis. 2. Generalized anxiety disorder. 3. Stated history of social exclusion and rejection, APS on board. 4. History of exposure to COVID virus. 5. COVID virus test results unknown, pending. Test obtained on 03/25/2020, at [facility]. 6. Hypertension, stable. Job ID: [id number]
== END 2020-03-27 19:30 | disposition home or self-care (01) ==
LOC: MADMS 14:42 → UNDOADMIN 14:42 → MADMS 16:55 → INTOOBSV 16:55
PROVIDERS: ADMIT Family Medicine; ATTEND Family Medicine
DX: F32.2 Major depressive disorder, single episode, severe without psychotic features (principal); F41.1 Generalized anxiety disorder; I10 Essential (primary) hypertension; Z20.828 Contact with and (suspected) exposure to other viral communicable diseases; Z79.899 Other long term (current) drug therapy; Z88.1 Allergy status to other antibiotic agents; Z88.8 Allergy status to other drugs, medicaments and biological substances; Z91.048 Other nonmedicinal substance allergy status
CPT/HCPCS: G0378; G0379

== ENCOUNTER 2020-03-29 17:16 | Emergency (ER) | payer MEDICARE, OTHER ==
[2020-03-29 18:27] LABS: ALT (SGPT) 15 U/L (8-55); AST (SGOT) 17 U/L (5-34); Albumin 3.5 g/dL (3.4-4.8); Alkaline Phosphatase 66 U/L (40-110); Anion Gap 17 mmol/L (10-20); BUN (Urea Nitrogen) 7 mg/dL (9.8-20.1); Bilirubin, Total 0.5 mg/dL (0.2-1.2); Calc. Creatinine Clearance 0 mL/min (70-130); Calcium 9.3 mg/dL (7.8-10.44); Carbon Dioxide 25 mmol/L (23-31); Chloride 105 mmol/L (98-107); Estimated GFR-MDRD Greater than 90; Globulin 3.9 g/dL (2.4-3.5); Glucose 101 mg/dL (80-115); Magnesium 1.9 mg/dL (1.6-2.6); Potassium 3.7 mmol/L (3.5-5.1); Protein, Total 7.4 g/dL (6.0-8.3); Sodium 143 mmol/L (136-145)
[2020-03-29 18:28] LABS: #Basophils 0.1 thou/uL (0.0-0.2); #Lymphocytes 1.7 thou/uL (1.20-3.40); #Monocytes 0.6 thou/uL (0.11-0.59); %Basophils 1.8 % (0.0-1.0); %Eosinophils 0.8 % (0.0-10.0); %Lymphocytes 25.9 % (21.0-51.0); %Monocytes 9.7 % (0.0-10.0); %Neutrophils 61.9 % (42.0-75.0); Anisocytosis MODERATE=16-30 cells (100X) (0-5/hpf); Giant Platelets SLIGHT; Hemoglobin 11.7 g/dL (12.0-16.0); Large Platelets MODERATE; MDiff Complete? YES; Mean Corpuscular HGB CONC 29.1 g/dL (32.0-36.0); Mean Corpuscular Hemoglobin 20.4 pg (27.0-31.0); Mean Corpuscular Volume 70.3 fL (78.0-98.0); Microcytosis SLIGHT = 6-15 cells (100X) (0-5/hpf); Platelet Count 204 thou/uL (130-400); Platelet Morphology Comment Appears Adequate; Red Blood Cell (RBC) Count 5.71 mill/uL (4.20-5.40); White Blood Cell (WBC) Count 6.4 thou/uL (4.8-10.8)
--- NOTE | 2020-03-29 18:41 | CT ---
Exam: Head CT without contrast HISTORY: Fall. Previous strokes. COMPARISON: 08/26/2019 FINDINGS: Hemorrhage: No intraparenchymal hemorrhage or extra-axial hematoma. Brain parenchyma: Cerebrum: Cortical white-white matter differentiation is preserved. No midline shift. Basilar cisterns are patent. Brain volume, age-appropriate. Cerebellum: There is loss of white-white matter differentiation and edema involving the left and right cerebellar hemispheres. Findings are worrisome for possible posterior fossa infarct. Other etiologies include a intraparenchymal mass lesion cannot be entirely excluded given areas of possible vasogenic edema. There is mass effect upon the fourth ventricle. Ventricular system: There is mass effect upon the fourth ventricle, there is no hydrocephalus. There is a [employer] shunt catheter via the right frontal approach. Distal tip appears to extend beyond the ventricle and terminates in the left thalamus. Catheter tip is unchanged. There is slight asymmetric prominence of the right. Calvarium: Stable postoperative changes in the left occipital bone. No fracture. Sinuses and mastoid air cells: Adequate aeration. IMPRESSION: 1. Edema involving the posterior fossa. There is loss of white-white matter differentiation favoring c ytotoxic edema. However, other areas suggest possible component of vasogenic edema. Better interrogation with CT angiogram of the head and neck and brain MRI is recommended to assess for poste rior fossa infarct versus intra-axial mass. 2. There is mass effect upon the fourth ventricle. However, there does not appear to be any significa nt hydrocephalus. Ventricle peritoneal shunt catheter as described above.
--- NOTE | 2020-03-29 18:42 | CT ---
Exam: Chest CT without contrast HISTORY: COVID symptoms and exposure. Cough. FINDINGS: Mediastinum: Limited evaluation by the lack of IV contrast. No mass, lymphadenopathy or hematoma. The re are calcified right paratracheal and right perihilar lymph nodes HEART: No significant pericardial effusion. Normal heart size. Aorta: Atherosclerosis. Slight elongation of the descending thoracic aorta. There is calcification of the aortic valve. Subdiaphragmatic structures: Portions of a TRANSPLANTER shunt catheter identified. No acute abnormality Trachea and central bronchi: Patent LUNGS: There are scattered areas of atelectasis and scarring. No consolidation or significant periphe ral groundglass opacification. There is minimal groundglass opacification involving the right lower lobe. However, the appearance is nonspecific and not entirely compatible with COVID 19 pneumonia. Nodules: There are no suspicious nodules in the left or right lung Pleural spaces: No significant pleural effusion Pneumothorax: None Osseous structures: No lytic or blastic lesions within the osseous structures IMPRESSION: Minimal groundglass opacification in the right lower lobe. Distribution does not favor COVID 19 pneum onia. There are additional areas of scattered linear densities in the left upper lobe and bilateral lower lobes which favor atelectasis or scar. Transcribed Date/Time: 03/29/2020 6:51 PM
== END 2020-03-29 20:15 | disposition short-term general hospital (02) ==
LOC: MADERS 17:16
DX: R42 Dizziness and giddiness (principal); R05 Cough; R11.2 Nausea with vomiting, unspecified; I10 Essential (primary) hypertension; K21.9 Gastro-esophageal reflux disease without esophagitis; Z86.73 Personal history of transient ischemic attack (TIA), and cerebral infarction without residual deficits; Z20.828 Contact with and (suspected) exposure to other viral communicable diseases
CPT/HCPCS: 36415; 70450; 71250; 80053; 83735; 84443; 84484; 85025; 93005